=== PATIENT | male | born 1985 | race Asian ===

== ENCOUNTER 2017-01-12 09:03 | Day surgery (SDC) | payer OTHER ==
[2017-01-09 12:12] VITALS: BP 158/93
[~2017-01-12] VITALS: Ht 175.3 cm; Wt 80.0 kg
[~2017-01-12 09:03] MED LIST: NONE PER PT
[2017-01-12] MEDS ORDERED: LACTATED RINGERS 1,000 ML IV SCH (09:18)
[2017-01-12] MEDS ORDERED: EPINEPHRINE 1 MG/ML, 1ML ONE (09:20)
[2017-01-12] MEDS ORDERED: LIDOCAINE/PF 1%, 30ML ONE (09:20)
[2017-01-12] MEDS ORDERED: BUPIVACAINE/PF 0.5% ONE (09:20)
[2017-01-12 09:21] VITALS: BP 158/93
[2017-01-12] MEDS ORDERED: FENTANYL PF 100 MCG/2ML ONE ×2 (09:49→11:04)
[2017-01-12] MEDS ORDERED: DEXAMETHASONE 4 MG/ML, 1ML ONE (09:57)
[2017-01-12] MEDS ORDERED: CEFAZOLIN 1,000 MG ONE (09:57)
[2017-01-12] MEDS ORDERED: KETOROLAC 30 MG/1 ML ONE (09:57)
[2017-01-12] MEDS ORDERED: PROPOFOL 10 MG/ML, 20ML ONE (09:57)
[2017-01-12] MEDS ORDERED: METOCLOPRAMIDE 5 MG/ML, 2ML ONE (09:57)
[2017-01-12] MEDS ORDERED: ONDANSETRON 2MG/ML, 2ML ONE (09:57)
[2017-01-12] MEDS ORDERED: ONDANSETRON 2MG/ML, 2ML IVPush PRN (10:00)
[2017-01-12] MEDS ORDERED: MIDAZOLAM 1 MG/ML, 2ML IV PRN (10:00)
[2017-01-12] MEDS ORDERED: PROMETHAZINE 25 MG/ML, 1ML IV PRN (10:00)
[2017-01-12] MEDS ORDERED: OXYcodone 5 MG/5 ML ORAL.SOL UDC PO PRN (10:00)
[2017-01-12] MEDS ORDERED: HYDROmorphone 1 MG/ML, 1ML IV PRN (10:00)
[2017-01-12] MEDS ORDERED: LABETALOL 5MG/ML, 20ML IV PRN (10:00)
[2017-01-12] MEDS ORDERED: ACETAMINOPHEN 325 MG TABLET PO PRN (10:00)
[2017-01-12] MEDS ORDERED: MEPERIDINE/PF 25MG/0.5ML IVPush PRN (10:00)
[2017-01-12] MEDS ORDERED: FENTANYL PF 100 MCG/2ML IV PRN (10:00)
[2017-01-12] MEDS ORDERED: DIAZEPAM 5 MG/ML, 2ML IVPush PRN (10:00)
[2017-01-12] MEDS ORDERED: LORazepam 2 MG/ML, 1ML IVPush PRN (10:00)
[2017-01-12] MEDS ORDERED: hydrALAzine 20 MG/ML, 1ML IV PRN (10:00)
[2017-01-12] MEDS ORDERED: OXYcodone 5 MG/5 ML ORAL.SOL UDC ONE (11:04)
== END 2017-01-12 12:30 ==
LOC: OUT 09:03
PROVIDERS: ATTEND Podiatrist Foot & Ankle Surgery
DX: M72.2 Plantar fascial fibromatosis (principal)
CPT/HCPCS: 28008; J0171; J0690; J1100; J1885; J2405; J2704; J2765; J3010; J3490; J7120